=== PATIENT | female | born 1990 ===

== ENCOUNTER 2017-05-29 10:34 | Emergency (ER) | payer SELFPAY ==
[2017-05-29 10:43] VITALS: BMI 24.1
[2017-05-29 10:46] VITALS: TEMP 97.5
--- NOTE | 2017-05-29 12:12 | ED PDOC ---
HPI: General Adult Time Seen by Provider: 05/29/17 10:50 Chief Complaint (Nursing): Abdominal Pain History Per: Patient Additional Complaint(s): Pt. states yesterday she developed pelvic pain and this morning she had brown vaginal discharge. States on Saturday she had an IUD placed by Dr. Espinosa. Denies fever, dysuria, hematuria, incontinence, back pain, flank pain, N/V/D. Past Medical History Reviewed: Historical Data, Nursing Documentation, Vital Signs Vital Signs: Last Vital Signs Temp 97.5 F L 05/29/17 10:44 Pulse 76 05/29/17 10:44 Resp 18 05/29/17 10:44 BP 96/57 L 05/29/17 10:44 Pulse Ox 98 05/29/17 12:13 - Medical History PMH: Depression (Post-) Denies: Chronic Kidney Disease - Surgical History Surgical History: - Family History Family History: States: No Known Family Hx - Home Medications Home Medications: Ambulatory Orders Medication Instructions Recorded Multivit/Folic Acid/I 1 tab PO DAILY 07/05/15 [] Docusate Sodium [Colace] 100 mg PO BID #30 sgl 07/08/15 Ferrous Sulfate 325 mg PO BID #60 tab 07/08/15 oxyCODONE/Acetaminophen [Percocet 1 tab PO Q6 PRN #20 tab 07/08/15 5/325 mg Tab] Naproxen 375 mg PO Q8 PRN #21 tab 12/18/15 diaZEpam [Valium] 5 mg PO Q6 PRN #10 tab 12/18/15 Naproxen [Naprosyn] 500 mg PO BID PRN #14 tab 05/29/17 - Allergies Allergies/Adverse Reactions: Allergies Allergy/AdvReac Type Severity Reaction Status Date / Time No Known Allergies Allergy Verified 05/29/17 10:58 Review of Systems ROS Statement: Except As Marked, All Systems Reviewed And Found Negative Genitourinary Female: Positive for: Vaginal Discharge, Pelvic Pain Physical Exam - Physical Exam Appears: Positive for: Well, Non-toxic, No Acute Distress Skin: Positive for: Normal Color, Warm. Negative for: Rash Eye Exam: Positive for: Normal appearance Gastrointestinal/Abdominal: Positive for: Normal Exam, Bowel Sounds, Soft. Negative for: Tenderness Pelvic Exam: Positive for: No Cerv. 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 ). Negative for: Active Bleeding , Blood, Cervicitis, Lesions, Mass, Tender W/Cervical Motion Back: Positive for: Normal Inspection. Negative for: L CVA Tenderness, R CVA Tenderness Extremity: Positive for: Normal ROM Neurologic/Psych: Positive for: Alert, Oriented - Laboratory Results Result Diagrams: 05/29/17 12:26 05/29/17 12:26 Urine POC: Negative - ECG O2 Sat by Pulse Oximetry: 98 - Progress ED Course And Treament: Labs ordered. TVUS ordered. TVUS: Normal pelvic ultrasound. Intrauterine device remains in customary position. Case and results d/w Dr. Segura who states pt. does not require antibiotics but can be placed on NSAIDs for pain. Also requests that pt. f/u with Dr. Espinosa in 2 days. States that these symptoms can be expected after IUD placement. Disposition - Clinical Impression Clinical Impression: IUD (intrauterine device) in place - Patient ED Disposition Is Patient to be Admitted: No - Disposition Disposition: Routine/Home Disposition Time: 14:25 Condition: STABLE Prescriptions: Naproxen [Naprosyn] 500 mg PO BID PRN #14 tab PRN Reason: Pain Instructions: Pelvic Pain in Women (ED) Forms: [facility] (Turkmen) Print Language: AFGHAN
[2017-05-29 12:30] LABS: BASO % 0.4 % (0.0-2.0); EOS # 0.1 K/uL (0.0-0.7); HEMATOCRIT 35.3 % (34.0-47.0); LYMPH # 2.1 K/uL (1.0-4.3); LYMPH % 27.2 % (20.0-40.0); MEAN CELL VOLUME 87.6 fl (81.0-99.0); MEAN CORPUSCULAR HEMOGLOBIN 30.4 pg (27.0-31.0); MEAN CORPUSCULAR HGB CONC 34.7 g/dL (33.0-37.0); MEAN PLATELET VOLUME 7.7 fl (7.2-11.7); MONO # 0.3 K/uL (0.0-0.8); MONO % 4.4 % (0.0-10.0); NEUT # 5.1 K/uL (1.8-7.0); RED CELL DISTRIBUTION WIDTH 12.9 % (11.5-14.5); WHITE BLOOD COUNT 7.6 K/uL (4.8-10.8)
[2017-05-29 12:37] LABS: RBC URINE 6 /hpf (0-3); URINE BACTERIA OCC (<OCC); URINE BILIRUBIN NEGATIVE (NEGATIVE); URINE BLOOD MODERATE (NEGATIVE); URINE COLOR YELLOW (YELLOW); URINE GLUCOSE (UA) NEG (Normal); URINE KETONE NEGATIVE (NEGATIVE); URINE LEUKOCYTE ESTERASE SMALL Leu/uL (Negative); URINE PROTEIN 30 mg/dL (NEGATIVE); URINE UROBILINOGEN 0.2-1.0 mg/dL (0.2-1.0); WBC URINE 13 /hpf (0-5)
[2017-05-29 12:43] LABS: ALB/GLOB RATIO 1.1 (1.0-2.1); ALKALINE PHOSPHATASE 83 U/L (38-126); ALT/SGPT 56 U/L (9-52); AST/SGOT 32 U/L (14-36); BILIRUBIN,TOTAL 0.1 mg/dl (0.2-1.3); BLOOD UREA NITROGEN 16 mg/dl (7-17); CALCIUM 8.7 mg/dL (8.4-10.2); CARBON DIOXIDE 25 mmol/L (22-30); CHLORIDE 108 mmol/L (98-107); GFR AFRICAN-AMERICAN > 60; GLUCOSE,RANDOM 104 mg/dL (65-105); POTASSIUM 3.9 MMOL/L (3.6-5.0); SODIUM 141 mmol/l (132-148); TOTAL PROTEIN 6.6 G/DL (6.3-8.2)
--- NOTE | 2017-05-29 14:17 | US ---
HISTORY: vaginal discharge, pelvic pain COMPARISON: None available. TECHNIQUE: Transvaginal pelvic ultrasound was performed. FINDINGS: UTERUS: Measures 8.4 x 2.9 x 5.3 cm. Anteverted, normal in size and appearance. No fibroid or other mass lesion seen. ENDOMETRIUM: Measures 7.0 mm in diameter. An intrauterine device remains in customary position. CERVIX: No cervical abnormality identified. RIGHT OVARY: Measures 3.9 x 2.2 x 3.5 cm. No solid mass. Normal flow. LEFT OVARY: Measures 2.6 x 1.6 x 2.5 cm. No solid mass. Normal flow. FREE FLUID: No significant free fluid noted. OTHER FINDINGS: None. IMPRESSION: Normal pelvic ultrasound. Intrauterine device remains in customary position.
[2017-05-29 14:46] VITALS: BP 104/61; PULSE 70; RESP 16; O2SAT 100
== END 2017-05-29 14:45 | disposition home or self-care (01) ==
LOC: H.ER 10:34
DX: R10.2 Pelvic and perineal pain (principal); N89.8 Other specified noninflammatory disorders of vagina; Z97.5 Presence of (intrauterine) contraceptive device